=== PATIENT | female | born 1995 | race Caucasian/White ===

== ENCOUNTER 2018-02-05 03:45 | Emergency (ER) | payer OTHER ==
[2018-02-05 03:52] VITALS: BP 109/65
--- NOTE | 2018-02-05 03:54 | EDPHY ---
H & P Stated Complaint: r eye red with drainage Time Seen by Provider: 02/05/18 03:54 HPI/ROS: HPI CHIEF COMPLAINT: Right eye redness with drainage. HISTORY OF PRESENT ILLNESS: Very pleasant 22-year-old female she is otherwise healthy denies significant medical history except for attention deficit hyperactivity disorder, presents emergency room with right eye redness, burning , and drainage. She states she woke up crusting on her eyelashes whitish crossed. She does wear contacts. She does not have the min. Denies any eye trauma. Denies any fever. Denies significant eye pain but has burning discomfort. No visual disturbance. Past Medical History: Attention deficit hyperactivity disorder Past Surgical History: No recent surgery Social History: Denies drugs alcohol tobacco Family History: Noncontributory ROS REVIEW OF SYSTEMS: 10 Systems were reviewed and negative with the exception of the elements mentioned in the history of present illness. Exam Constitutional triage nursing summary reviewed, vital signs reviewed, awake/ alert. Eyes left eye normal, right eye: Conjunctiva is injected, some whitish yellow discharge at the medial canthus. No proptosis. Globe soft. Anterior chamber normal. Extraocular movements intact. No foreign body visualized. Fluorescein was applied without any uptake. HENT normal inspection, atraumatic, moist mucus membranes, no epistaxis, neck supple/ no meningismus, no raccoon eyes. Respiratory clear to auscultation bilaterally, normal breath sounds, no respiratory distress, no wheezing. Cardiovascular rate normal, regular rhythm, no murmur, no edema, distal pulses normal. Gastrointestinal soft, non-tender, no rebound, no guarding, normal bowel sounds, no distension, no pulsatile mass. Genitourinary no CVA tenderness. Musculoskeletal no midline vertebral tenderness, full range of motion, no calf swelling, no tenderness of extremities, no meningismus, good pulses, neurovascularly intact. Skin pink, warm, & dry, no rash, skin atraumatic. Neurologic awake, alert and oriented x 3, AAOx3, moves all 4 extremities equally, motor intact, sensory intact, CN II-XII intact, normal cerebellar, normal vision, normal speech. Psychiatric normal mood/affect. Heme/Lymph/Immune no lymphadenopathy. Differential Diagnosis: Includes but is not limited to in a particular order bacterial conjunctivitis, viral conjunctivitis, corneal abrasion Medical Decision Making: Plan for this patient visual acuity will be reviewed. Fluorescein applied to rule out scratch. Re-evaluation: I recommend the patient that she does not wear contacts for least a week. Does not rub her eye. Cool compresses and ibuprofen. Follows up with Ophthalmology tomorrow. Antibiotic eyedrops. Ocuflox. Keep her hands clean. Return precautions discussed. There is no abscess take seen on fluorescein exam. No evidence of corneal abrasion or scratch. Visual acuity is the following right eye with corrective lenses 20/20, left eye 20/25, and both eyes 20/20 corrective lenses were worn. Source: Patient - Personal History LMP (Females 10-55): 1-7 Days Ago Current Tetanus/Diphtheria Vaccine: Yes Current Tetanus Diphtheria and Acellular Pertussis (TDAP): Yes - Medical/Surgical History Hx Asthma: No Hx Chronic Respiratory Disease: No Hx Diabetes: No Hx Cardiac Disease: Yes Hx Renal Disease: No Hx Cirrhosis: No Hx Alcoholism: No Hx HIV/AIDS: No Hx Splenectomy or Spleen Trauma: No - Social History Smoking Status: Never smoked Constitutional: Initial Vital Signs Temperature (C) 36.9 C 02/05/18 03:48 Heart Rate 82 02/05/18 03:48 Respiratory Rate 18 02/05/18 03:48 Blood Pressure 109/65 02/05/18 03:48 O2 Sat (%) 97 02/05/18 03:48 O2 Delivery Mode Room Air Allergies/Adverse Reactions: aloe vera Allergy (Verified 02/05/18 03:47) Home Medications: Medication Instructions Recorded Controll 02/05/18 Paroxetine Cr 02/05/18 VYVANSE 02/05/18 Departure - Departure Disposition: Home, Routine, Self-Care Clinical Impression: Conjunctivitis Condition: Good Instructions: Conjunctivitis (ED) Additional Instructions: 1. Do not rub your eye. 2. Antibiotic eyedrops as prescribed 3. Ibuprofen for pain control. 4. Cool compresses. 5. Keep her hands clean. 6. Follow up with Ophthalmology Referrals: [facility] [Other] - As per Instructions Wally Hyatt MD [Medical Doctor] - As per Instructions
[2018-02-05] MEDS ORDERED: OFLOXACIN 0.3% SOLN PREPACK OPHT.BTL TAKEHOME ONE (03:56)
[2018-02-05] MEDS ORDERED: PROPARACAINE/FLUORESCEIN SOD 5 ML OPHT.BTL OP ONE (03:57)
== END 2018-02-05 04:28 | disposition home or self-care (01) ==
DX: H10.9 Unspecified conjunctivitis (principal)

== ENCOUNTER 2018-09-02 12:03 | Emergency (ER) | payer OTHER ==
[2018-09-02 12:09] VITALS: BP 110/83
--- NOTE | 2018-09-02 12:28 | EDPHY ---
H & P Time Seen by Provider: 09/02/18 12:13 HPI/ROS: CHIEF COMPLAINT: Left upper eyelid swelling, bilateral otalgia HISTORY OF PRESENT ILLNESS: 23-year-old immunocompetent female complaining 3 days of rhinorrhea common congestion, sore throat, bilateral otalgia and noticed atraumatic left upper lateral eyelid swelling this morning. Pain-free. Denies: Pain with extraocular movements, periorbital erythema, visual acuity changes, photophobia, headache, nausea, vomiting, nuchal rigidity or neck pain. REVIEW OF SYSTEMS: 10 systems reviewed and negative with the exception of the elements mentioned in the history of present illness PAST MEDICAL & SURGICAL HISTORY: No pertinent medical or surgical history SOCIAL HISTORY: Nonsmoker, student PHYSICAL EXAM (Prior to examination, patient consented to physical exam, hands were washed and my usual and customary physical exam procedures followed) 1) GENERAL: Well-developed, well-nourished, alert and oriented. Appears to be in no acute distress. 2) HEAD: Normocephalic, atraumatic 3) HEENT: Pupils equal, round, reactive to light bilaterally. Sclera anicteric. No injection. No discharge. No pain with extraocular movements. Left upper lateral eye lid subtle edema with no erythema, no induration, no tenderness. No crepitus. No proptosis. Nasopharynx, oropharynx, clear, no lesions. Moist Mucous membranes. No trismus no drooling. Ears bilaterally with evidence of clear effusion bilaterally without infection of otitis media otitis externa. No evidence of gross tympanic membrane perforation. 4) NECK: Full range of motion, no meningeal signs. 5) LUNGS: Clear auscultation bilaterally, no wheezes, no rhonchi, no retractions. 6) HEART: Regular rate and rhythm, no murmur, no heave, no gallop. 7) ABDOMEN: No guarding, no rebound, no focal tenderness, negative McBurney's, negative Khan's, negative Rovsing's, negative peritoneal sign, 8) MUSCULOSKELETAL: Moving all extremities, no focal areas of tenderness, no obvious trauma. No peripheral edema or discoloration. 9) BACK: No CVA tenderness, no midline vertebral tenderness, no fluctuance, no step-off, no obvious trauma, no visual or palpable abnormality. 10) SKIN: No rash, no petechiae. 11) Psychiatric: Patient is oriented X 3, there is no agitation. DIFFERENTIAL DIAGNOSIS: In no particular order including but not limited to chalazion, hordeolum, blepharitis, periorbital cellulitis, orbital cellulitis Smoking Status: Never smoked Constitutional: Initial Vital Signs Temperature (C) 37 C 09/02/18 12:07 Heart Rate 84 09/02/18 12:07 Respiratory Rate 16 09/02/18 12:07 Blood Pressure 110/83 H 09/02/18 12:07 O2 Sat (%) 99 09/02/18 12:07 O2 Delivery Mode Room Air Allergies/Adverse Reactions: aloe vera Allergy (Verified 09/02/18 12:07) Home Medications: Medication Instructions Recorded Controll 02/05/18 VYVANSE 02/05/18 Pseudoephedrine HCl [Sudafed 12 120 mg PO BID #12 tab 09/02/18 Hour 120mg (*)] Sertraline HCl 09/02/18 MDM/Departure - [facility] ED Course/Re-evaluation: Patient's physical exam findings are not consistent with periorbital or orbital cellulitis. There is no evidence of trauma, no ecchymosis, no pain, no induration. At this time do not identify definitive indication for imaging or initiation of antibiotics. She has no evidence of cellulitis or infection to her face. No evidence of conjunctivitis. She has no headache. I recommend conservative therapy informed cold packs at this time. She is also noted to have bilateral clear ear effusion no evidence of otitis media. Recommended [id number] Sudafed. I do not think that antibiotics indicated at this time. We discussed More than likely viral etiology. Feels comfortable being discharged. Patient feels comfortable being discharged. All questions and concerns addressed by myself. Patient given my usual and customary discharge precautions and instructions regarding their clinical impression. Care of patient under supervision of secondary supervising physician Dr Fitzgerald . - Depart Disposition: Home, Routine, Self-Care Clinical Impression: Acute effusion of both middle ears, Periorbital edema of left eye Condition: Good Instructions: Earache (ED) Additional Instructions: Return to the ER if you develop pain with eye movements, redness around your eye , discharge from your eye or any other symptoms that concern you Stand Alone Forms: School Excuse Prescriptions: Pseudoephedrine HCl [Sudafed 12 Hour 120mg (*)] 120 mg PO BID #12 tab Referrals: [facility]. [Clinic] - 1-2 days without fail
== END 2018-09-02 12:31 | disposition home or self-care (01) ==
DX: H74.8X3 Other specified disorders of middle ear and mastoid, bilateral (principal); R60.0 Localized edema